=== PATIENT | female | born 1965 | race Caucasian/White ===

== ENCOUNTER → 2016-10-29 | Outpatient (CLI) | payer OTHER ==
--- NOTE | 2016-10-29 15:30 | CR ---
EXAMINATION: Left knee HISTORY: Pain COMPARISON: MRI dated 07/01/2016 TECHNIQUE: 2 views FINDINGS/IMPRESSION: There is no acute osseous abnormality, dislocation, or fracture. Bone mineraliz ation and joint spaces appear normal. No joint effusion or soft tissue swelling.
== END | disposition home or self-care (01) ==
LOC: MW.CHORTHO 07:50
PROVIDERS: ATTEND Orthopaedic Surgery
DX: M25.562 Pain in left knee (principal)
CPT/HCPCS: 73560-26-LT; 73560-LT

== ENCOUNTER 2016-12-09 07:52 | Day surgery (SDC) | payer OTHER ==
[~2016-12-09 07:52] MED LIST: Lactated Ringers 1,000 ML IV SCH; Lidocaine 1% 20 ML MDV ONE; Lidocaine 2% 5 ML SDV ONE; Midazolam 1 MG/ML 2 ML SDV ONE; Ondansetron 4 MG/2 ML SDV ONE; Propofol 200 MG/20 ML SDV ONE; Sodium Chloride 0.9% 20 ML ONE; ceFAZolin 1 GM Vial ONE; fentaNYL 250 MCG/5 ML SDV ONE
[2016-12-09] MEDS ORDERED: ceFAZolin 2 GM in Premix Bag 1 BAG IV SCH (08:00)
[2016-12-09] MEDS ORDERED: ePHEDrine 50 MG/ML SDV ONE ×2 (08:17→10:11)
[2016-12-09] MEDS ORDERED: Acetaminophen/HYDROcodone 325-5 MG Tab PO PRN (09:00)
--- NOTE | 2016-12-09 09:05 | PCM.OPNOTE ---
- General Post-Op/Procedure Note Date of Surgery/Procedure: 12/09/16 Operative Procedure(s): R knee arthroscopy Post-Op Diagnosis: R knee medial/lateral meniscus tear. DJD R knee Anesthesia Technique: General LMA Primary Surgeon: Maria M Lovelace Sheet Rock Installer: Jose Soares in mLs: 5 Condition: Good Free Text/Narrative:: tt=16 min #[id number]
--- NOTE | 2016-12-09 09:22 | PCM.PREANE ---
Preanesthetic Assessment - Procedure Proposed Procedure: Right knee arthroscopy with meniscal repair/excision - Anesthesia/Transfusion/Family Hx Anesthesia History: Prior Anesthesia Without Reaction Type of Anesthesia Reaction: Unknown Transfusion History: No Prior Transfusion(s) Intubation History: Unknown - Review of Systems General: No Symptoms, Other (obesity) Pulmonary: Shortness of Breath, Wheezing (hx with use of inhaler regularly) Cardiovascular: No Symptoms Gastrointestinal: Other (GERD; needs treatment daily) Neurological: Other (pain in both knees, right the worst) Other: Reports: None - Physical Assessment O2 Sat by Pulse Oximetry: 94 Respiratory Rate: 16 Vital Signs: Last Vital Signs Temp Pulse 70 12/09/16 08:10 Resp 16 12/09/16 08:10 BP 123/79 12/09/16 08:10 Pulse Ox 94 L 12/09/16 08:10 Height: 5 ft 2 in Weight: 246 lb ASA Class: 3 Mental Status: Alert & Oriented x3 Airway Class: Mallampati = 1 Dentition: Reports: Normal Dentition (irregular position on lower teeth) Thyro-Mental Finger Breadths: 3 Mouth Opening Finger Breadths: 3 ROM/Head Extension: Full (short neck) Lungs: Clear to auscultation, Decreased breath sounds (accessory muscle deep breathing) Cardiovascular: Regular Rate, Regular Rhythm, No Murmurs - Allergies Allergies/Adverse Reactions: Allergies Allergy/AdvReac Type Severity Reaction Status Date / Time morphine Allergy Swelling Verified 09/28/15 13:06 - Blood Blood Available: No Product(s) Available: None - Anesthesia Plan Pre-Op Medication Ordered: None - Acknowledgements Anesthesia Type Planned: General Anesthesia (OET vs LMA) Pt an Appropriate Candidate for the Planned Anesthesia: Yes Alternatives and Risks of Anesthesia Discussed w Pt/Guardian: Yes Pt/Guardian Understands and Agrees with Anesthesia Plan: Yes PreAnesthesia Questionnaire HEENT History: Reports: Other (See Below) Other HEENT History: wears glasses Cardiovascular History: Reports: High Cholesterol Respiratory History: Reports: Asthma Gastrointestinal History: Reports: GERD Genitourinary History: Reports: None 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 THERAPIST History: Reports: Musculoskeletal History: Reports: Arthritis, Fracture Other Musculoskeletal History: hx fx ankle Psychiatric History: Reports: Anxiety, Depression Endocrine/Metabolic History: Reports: Diabetes, Type II, Obesity/BMI 30+ - Past Surgical History Head Surgeries/Procedures: Reports: None Female Surgical History: Reports: Section, Hysterectomy Neurological Surgical History: Reports: Lumbar Spine Other Neurological Surgeries/Procedures: hx back surgery Musculoskeletal Surgical History: Reports: Other (See Below) Other Musculoskeletal Surgeries/Procedures:: Back Surgery - SUBSTANCE USE Smoking Status *Q: Current Every Day Smoker Tobacco Use Within Last Twelve Months: Cigarettes Days Per Week of Alcohol Use: 0 Recreational Drug Use History: No - HOME MEDS Home Medications: Home Meds Omeprazole Magnesium [Prilosec Otc] 20 mg PO DAILY 05/31/14 [History] Albuterol [Ventolin HFA] 2 puff INH ASDIRECTED PRN 12/04/16 [History] Diclofenac Sodium [Voltaren] 1 tab PO BID PRN 12/04/16 [History] Gabapentin [Neurontin] 2 tab PO TID 12/04/16 [History] Pravastatin Sodium 1 tab PO BEDTIME 12/04/16 [History] Saxagliptin HCl/Metformin HCl [Kombiglyze XR 2.5-1,000 MG] 2 tab PO PCDINNER 03/14 [History] Sertraline HCl 2 tab PO DAILY 12/04/16 [History] - CURRENT (IN HOUSE) MEDS Current Meds: Current Medications Hydrocodone Bitart/Acetaminophen (Beulah 325-5 Mg) 1 - 2 tab PO Q4H PRN PRN Reason: Pain Fentanyl (Sublimaze) 50 mcg IVPUSH Q5M PRN PRN Reason: Pain (severe 7-10) Stop: 12/10/16 08:38 Lactated Ringer's (Ringers, Lactated) 1,000 mls @ 100 mls/hr IV ASDIRECTED [facility] Last Admin: 12/09/16 08:14 Dose: 100 mls/hr Cefazolin Sodium/Dextrose 2 gm (/ Premix) 50 mls @ 100 mls/hr IV ONCALL [facility] Discontinued Medications Cefazolin Sodium (Ancef) Confirm Administered Dose 2 gm .ROUTE .STK-MED ONE Stop: 12/09/16 07:38 Ephedrine Sulfate (Ephedrine Sulfate) Confirm Administered Dose 50 mg .ROUTE .STK-MED ONE Stop: 12/09/16 08:18 Fentanyl (Sublimaze) Confirm Administered Dose 250 mcg .ROUTE .STK-MED ONE Stop: 12/09/16 07:38 Glycopyrrolate () Confirm Administered Dose 1 mg .ROUTE .STK-MED ONE Stop: 12/09/16 08:10 Sodium Chloride (Normal Saline) Confirm Administered Dose 20 mls @ as directed .ROUTE .STBiancaMed-MED ONE Stop: 12/09/16 07:38 Lidocaine (Xylocaine-Mpf 2%) Confirm Administered Dose 5 ml .ROUTE .STBiancaMed-MED ONE Stop: 12/09/16 07:38 Lidocaine HCl (Xylocaine 1%) Confirm Administered Dose 20 ml .ROUTE .STBiancaMed-MED ONE Stop: 12/08/16 14:59 Midazolam HCl (Versed 1 Mg/Ml) Confirm Administered Dose 2 mg .ROUTE .STBiancaMed-MED ONE Stop: 12/09/16 07:38 Ondansetron HCl (Zofran) Confirm Administered Dose 4 mg .ROUTE .GTRAN-MED ONE Stop: 12/09/16 07:38 Propofol (Diprivan 20 Ml) Confirm Administered Dose 200 mg .ROUTE .STBiancaMed-MED ONE Stop: 12/09/16 07:38
[2016-12-09] MEDS ORDERED: Famotidine 20 MG/2 ML SDV IVPUSH ONE (09:25)
[2016-12-09] MEDS ORDERED: Succinylcholine/Normal Saline 200 MG/10 ML Syringe ONE (09:42)
[2016-12-09] MEDS ORDERED: Albuterol 6.7 GM Inhaler INH ONE (10:10)
[2016-12-09] MEDS ORDERED: Propofol 200 MG/20 ML SDV ONE (10:38)
[2016-12-09] MEDS ORDERED: Albuterol/Ipratropium 3.0-0.5 MG/3 ML Neb Soln ONE (10:53)
[2016-12-09] MEDS ORDERED: Albuterol/Ipratropium 3.0-0.5 MG/3 ML Neb Soln NEB ONE (10:56)
--- NOTE | 2016-12-09 11:14 | PCM.POSTAN ---
POST ANESTHESIA ASSESSMENT - MENTAL STATUS Mental Status: alert, oriented - VITAL SIGNS Pulse Rate: 94 SaO2: 94 (improved from 87 on arrival; s/p albuterol Tx in PAR) Resp Rate: 15 Blood Pressure: 125/77 - RESPIRATORY Respiratory Status: respiratory rate WNL, airway patent, O2 saturation stable - CARDIOVASCULAR CV Status: pulse rate WNL, blood pressure stable - GASTROINTESTINAL GI Status: no symptoms - POST OP HYDRATION Hydration Status: adequate & stable
[2016-12-09] MEDS: fentaNYL 100 MCG/2 ML SDV IVPUSH PRN ×2 (11:16→11:33)
--- NOTE | 2016-12-09 12:47 | PCM48HPAN ---
Post Anesthesia Note - EVALUATION WITHIN 48HRS OF ANESTHETIC Vital Signs in Normal Range: Yes Patient Participated in Evaluation: Yes Respiratory Function Stable: Yes (albuterol treatment in PAR assisted in satisfactory discharge condition) Airway Patent: Yes Cardiovascular Function Stable: Yes Hydration Status Stable: Yes Pain Control Satisfactory: Yes Nausea and Vomiting Control Satisfactory: Yes Mental Status Recovered: Yes
[2016-12-09 14:06] VITALS: BP 122/74
--- NOTE | 2016-12-09 14:14 | OR ---
SURGEON: Maria M Lovelace MD DATE OF PROCEDURE: 12/09/2016 PREOPERATIVE DIAGNOSES: 1. Right knee medial meniscus tear. 2. Right knee degenerative disk disease. POSTOPERATIVE DIAGNOSES: 1. Right knee medial meniscus tear. 2. Right knee degenerative disk disease. 3. Right knee lateral meniscus tear. PROCEDURES: Right knee arthroscopy with partial medial and lateral meniscectomy. DIRECTOR HOME: Jose Soares PA-C. ANESTHESIA: General. ESTIMATED BLOOD LOSS: 5 mL. TOURNIQUET TIME: 16 minutes. COMPLICATIONS: None. DVT PROPHYLAXIS: Not indicated. IMPLANTS USED: None. BRIEF HISTORY: Callie is a 51-year-old female, who has had complaint of progressive right knee pain. She had failed conservative treatment. Due to her lack of response to conservative treatment, I did recommend surgical intervention. The risks and goals of procedure were discussed with the patient and were documented preoperatively. She agreed to proceed. DESCRIPTION OF PROCEDURE: The patient was properly identified and brought to the operating room. She was transferred from the OR cart and placed on the operating room table in supine position. General anesthesia was administered. After adequate anesthesia was obtained, a well-padded tourniquet was applied to the right lower extremity. The right lower extremity was then prepped in standard fashion using ChloraPrep solution. It was then sterilely draped. A time-out was performed to ensure correct site and procedure. Preoperative antibiotics were given. The surgical site had been marked preoperatively. An Esmarch was used to exsanguinate the right lower extremity and the tourniquet was inflated to 250 mmHg. A lateral portal arthrotomy was established. Blunt trocar and cannula were introduced into the suprapatellar pouch. Camera, inflow, and outflow were assembled. No significant synovitis was noted. The patellofemoral joint was visualized. She had extensive degenerative changes consistent with grade 3 to grade 4 chondromalacia along the central portion of the trochlear groove. The lateral portion of the patella also showed grade 4 chondromalacia. The patella appeared to track centrally. I then extended down to the lateral and medial gutters. No loose bodies were identified. I then entered the medial compartment. A medial portal arthrotomy was established. A blunt probe was inserted. She was found to have a degenerative tear of the posterior horn of the meniscus. Using a combination of biters and shaver, this was resected back to a stable remnant. The tibial plateau as well as the femoral condyle showed extensive degenerative changes diffusely consistent with grade 3 to grade 4 chondromalacia. I then entered the notch. Both the ACL and PCL were visualized and probed and found to be intact. I then entered the lateral compartment. Degenerative tearing of the meniscus was noted centrally. Using a combination of biters and shaver, this was resected back to a stable remnant. The lateral tibial plateau also showed significant degenerative changes consistent with grade 3 chondromalacia. The lateral femoral condyle showed grade 2 to grade 3 chondromalacia diffusely. The instruments were then removed from the knee. The portal sites were closed with 3-0 nylon. Lidocaine 1% was injected along the portal tracts. Xeroform gauze was placed over the wounds and a bulky dressing was applied. The tourniquet was then deflated. She was awakened from her anesthetic and transferred back to the operating room cart. She was brought to the recovery room in stable condition. All needle and sponge counts were correct thanks. BARRY / JOSE /[id number]
== END 2016-12-09 13:20 | disposition home or self-care (01) ==
LOC: MW.SDS 07:52
PROVIDERS: ATTEND Orthopaedic Surgery
PROC: 0SBC4ZZ Excision of Right Knee Joint, Percutaneous Endoscopic Approach (ICD-10-PCS; principal; 2016-12-09)
PROC: 0SBC4ZZ Excision of Right Knee Joint, Percutaneous Endoscopic Approach (ICD-10-PCS; 2016-12-09)
DX: M23.321 Other meniscus derangements, posterior horn of medial meniscus, right knee (principal); M23.361 Other meniscus derangements, other lateral meniscus, right knee; M22.41 Chondromalacia patellae, right knee; M17.11 Unilateral primary osteoarthritis, right knee; F41.9 Anxiety disorder, unspecified; M19.90 Unspecified osteoarthritis, unspecified site; J45.909 Unspecified asthma, uncomplicated; F32.9 Major depressive disorder, single episode, unspecified; E11.40 Type 2 diabetes mellitus with diabetic neuropathy, unspecified; E78.5 Hyperlipidemia, unspecified; K21.9 Gastro-esophageal reflux disease without esophagitis; M75.41 Impingement syndrome of right shoulder; M51.37 Other intervertebral disc degeneration, lumbosacral region; E66.9 Obesity, unspecified; E78.00 Pure hypercholesterolemia, unspecified; Z87.891 Personal history of nicotine dependence; Z86.73 Personal history of transient ischemic attack (TIA), and cerebral infarction without residual deficits; Z88.5 Allergy status to narcotic agent; Z79.84 Long term (current) use of oral hypoglycemic drugs; Z79.899 Other long term (current) drug therapy; Z90.710 Acquired absence of both cervix and uterus; Z98.890 Other specified postprocedural states
CPT/HCPCS: 29880; 94640; A9270; J0690; J2250; J2405; J3010; J7120; 01400; 88304; J2704

== ENCOUNTER 2017-12-31 16:07 | Emergency (ER) | payer OTHER ==
--- NOTE | 2017-12-31 16:16 | EDM.PDOC ---
ED HPI GENERAL MEDICAL PROBLEM - General Chief Complaint: Lower Extremity Injury/Pain Stated Complaint: DIZZY/LETHARGIC/SWOLLEN ANKLES Time Seen by Provider: 12/31/17 16:15 Source of Information: Reports: Patient - History of Present Illness INITIAL COMMENTS - FREE TEXT/NARRATIVE: HISTORY AND PHYSICAL: History of present illness: [Patient presents with several complaints she has had bariatric surgery 4 weeks ago concerned that her surgery is had a negative affect She currently has some intermittent dizziness associated with head position specifically looking down She also has a complaint of lethargy that is began over the last week week and a half where she feels quite sluggish ] She also has some ankle swelling which she is wearing compression stockings for does have edema which is 2+ Otherwise no fever, she has vomited with food couple of times and with drinking bolus of water today, no chills or sweats no chest pain shortness of breath headache or palpitation no bowel or urine symptoms Review of systems: As per history of present illness and below otherwise all systems reviewed and negative. Past medical history: As per history of present illness and as reviewed below otherwise noncontributory. Surgical history: As per history of present illness and as reviewed below otherwise noncontributory. Social history: No reported history of drug or alcohol abuse. Family history: As per history of present illness and as reviewed below otherwise noncontributory. Physical exam: HEENT: Atraumatic, normocephalic, pupils reactive, negative for conjunctival pallor or scleral icterus, mucous membranes moist, throat clear, neck supple, nontender, trachea midline. Dizziness reproduced with head position specifically chin to chest Lungs: Clear to auscultation, breath sounds equal bilaterally, chest nontender. Heart: S1S2, regular, negative for clicks, rubs, or JVD. Abdomen: Soft, nondistended, nontender. Negative for masses or hepatosplenomegaly. Negative for costovertebral tenderness. Surgical scars on abdomen well-healed clean dry intact no redness warmth or drainage no fluctuance Pelvis: Stable nontender. Genitourinary: Deferred. Rectal: Deferred. Extremities: Atraumatic, negative for cords or calf pain. Neurovascular unremarkable. Neuro: Awake, alert, oriented. Cranial nerves II through XII unremarkable. Cerebellum unremarkable. Motor and sensory unremarkable throughout. Exam nonfocal. Diagnostics: [TBC CMP UA troponin TSH urine culture EKG Chest [address] no contrast ] Therapeutics: [500 mL bolus Lasix 10 mg IV ] 1 g Rocephin IV Synthroid Macrobid Scopolamine transdermal Impression: benign positional vertigo Hypothyroidism UTI Postop bariatric procedure one month prior Chronic history of baseline finitive disposition and diagnosis as appropriate pending reevaluation and review of above. 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: Musculoskeletal History: Reports: Arthritis, Fracture Other Musculoskeletal History: hx fx ankle Psychiatric History: Reports: Anxiety, Depression Endocrine/Metabolic History: Reports: Diabetes, Type II, Obesity/BMI 30+ - Past Surgical History Head Surgeries/Procedures: Reports: None Female Surgical History: Reports: Section, Hysterectomy Neurological Surgical History: Reports: Lumbar Spine Other Neurological Surgeries/Procedures: hx back surgery Musculoskeletal Surgical History: Reports: Other (See Below) Other Musculoskeletal Surgeries/Procedures:: Back Surgery Social & Family History - Family History Family Medical History: Noncontributory Review of Systems - Review of Systems Review Of Systems: See Below ED EXAM, GENERAL - Physical Exam Exam: See Below Course - Vital Signs Last Recorded V/S: Last Vital Signs Temp 97.9 F 12/31/17 16:17 Pulse 65 12/31/17 16:17 Resp 18 12/31/17 16:17 BP 138/105 H 12/31/17 16:17 Pulse Ox 95 12/31/17 16:17 - Orders/Labs/Meds Orders: Active Orders 24 hr Category Date Time Status EKG Documentation Completion [RC] STAT Care 12/31/17 16:14 Active Chest 1V Frontal [CR] Stat Exams 12/31/17 16:14 Taken Head wo Cont [CT] Stat Exams 12/31/17 16:14 Taken CULTURE URINE [RM] Stat Lab 12/31/17 17:59 Ordered UA W/MICROSCOPIC [URIN] Stat Lab 12/31/17 17:06 Ordered UA W/MICROSCOPIC [URIN] Stat Lab 12/31/17 17:06 Received Sodium Chloride 0.9% [Normal Saline] 500 ml Med 12/31/17 17:15 Active IV STAT cefTRIAXone [Rocephin in Dextrose,Iso-Osm 1 GM/50 ML] 1 Med 12/31/17 18:00 Active gm Premix Bag 1 bag IV ONETIME Medication Orders Sodium Chloride (Normal Saline) 500 mls @ 999 mls/hr IV STAT CANDICE Last Admin: 12/31/17 17:25 Dose: 999 mls/hr Ceftriaxone Sodium/Dextrose 1 (gm/ Premix) 50 mls @ 100 mls/hr IV ONETIME ONE Stop: 12/31/17 18:29 Labs: Laboratory Tests 12/31/17 12/31/17 12/31/17 Range/Units 16:25 16:25 17:06 WBC 5.90 (4.0-11.0) K/uL RBC 3.65 L (4.30-5.90) M/uL Hgb 11.2 L (12.0-16.0) g/dL Hct 34.2 L (36.0-46.0) % MCV 93.7 (80.0-98.0) fL MCH 30.7 (27.0-32.0) pg MCHC 32.7 (31.0-37.0) g/dL RDW Std Deviation 49.5 (28.0-62.0) fl RDW Coeff of Negrito 14 (11.0-15.0) % Plt Count 185 (150-400) K/uL MPV 12.40 H (7.40-12.00) fL Neut % (Auto) 56.3 (48.0-80.0) % Lymph % (Auto) 34.4 (16.0-40.0) % [place] % (Auto) 7.6 (0.0-15.0) % Eos % (Auto) 1.2 (0.0-7.0) % Baso % (Auto) 0.5 (0.0-1.5) % Neut # (Auto) 3.3 (1.4-5.7) K/uL Lymph # (Auto) 2.0 (0.6-2.4) K/uL [place] # (Auto) 0.5 (0.0-0.8) K/uL Eos # (Auto) 0.1 (0.0-0.7) K/uL Baso # (Auto) 0.0 (0.0-0.1) K/uL Nucleated RBC % 0.0 /100WBC Nucleated RBCs # 0 K/uL Sodium 143 (136-145) mmol/L Potassium 3.3 L (3.5-5.1) mmol/L Chloride 105 (98-107) mmol/L Carbon Dioxide 27.2 (21.0-32.0) mmol/L BUN 11 (7.0-18.0) mg/dL Creatinine 0.9 (0.6-1.0) mg/dL Est Cr Clr Drug Dosing TNP Estimated GFR (MDRD) > 60.0 ml/min Glucose 122 H (74-106) mg/dL Calcium 8.4 L (8.5-10.1) mg/dL Total Bilirubin 0.4 (0.2-1.0) mg/dL AST 22 (15-37) IU/L ALT 29 (14-63) IU/L Alkaline Phosphatase 77 (46-116) U/L Troponin I < 0.050 (0.000-0.056) ng/mL Total Protein 6.4 (6.4-8.2) g/dL Albumin 3.4 (3.4-5.0) g/dL Globulin 3.0 (2.0-3.5) g/dL Albumin/Globulin Ratio 1.1 L (1.3-2.8) TSH 3rd Generation 3.81 H (0.36-3.74) uIU/mL Urine Color YELLOW Urine Appearance SLT CLOUDY Urine pH 6.0 (5.0-8.0) Ur Specific [place] 1.025 (1.001-1.035) Urine Protein NEGATIVE (NEGATIVE) mg/dL Urine Glucose (UA) NEGATIVE (NEGATIVE) mg/dL Urine Ketones NEGATIVE (NEGATIVE) mg/dL Urine Occult Blood NEGATIVE (NEGATIVE) Urine Nitrite POSITIVE H (NEGATIVE) Urine Bilirubin NEGATIVE (NEGATIVE) Urine Urobilinogen 0.2 (<2.0) EU/dL Ur Leukocyte Esterase TRACE (NEGATIVE) Urine RBC 0-2 (0-2/HPF) Urine WBC 1-5 (0-5/HPF) Ur Epithelial Cells FEW (NONE-FEW) Urine Bacteria 3+ H (NEGATIVE) Urine Mucus FEW (NONE-MOD) Meds: Medications Generic Name Dose Route Start Last Admin Trade Name Freq PRN Reason Stop Dose Admin Sodium Chloride 500 mls @ 999 mls/hr 12/31/17 17:15 12/31/17 17:25 Normal Saline IV 999 mls/hr STAT CANDICE Administration Ceftriaxone Sodium/Dextrose 1 50 mls @ 100 mls/hr 12/31/17 18:00 gm/ Premix IV 12/31/17 18:29 ONETIME ONE Discontinued Medications Generic Name Dose Route Start Last Admin Trade Name Freq PRN Reason Stop Dose Admin Furosemide 10 mg 12/31/17 17:13 12/31/17 17:27 Lasix IVPUSH 12/31/17 17:14 10 mg NOW ONE Administration Departure - Departure Time of Disposition: 18:14 Disposition: Home, Self-Care 01 Condition: Good Clinical Impression: Benign positional vertigo, UTI (urinary tract infection), Hypothyroidism - Discharge Information Referrals: Viridiana Egan PEDIGREE RESEARCHER [Primary Care Provider] - Forms: ED Department Discharge Additional Instructions: Medication as prescribed Return if symptoms persist or worsen Follow-up with primary care in 2 weeks sooner as needed The following information is given to patients seen in the emergency department who are being discharged to home. This information is to outline your options for follow-up care. We provide all patients seen in our emergency department with a follow-up referral. The need for follow-up, as well as the timing and circumstances, are variable depending upon the specifics of your emergency department visit. If you don't have a primary care physician on staff, we will provide you with a referral. We always advise you to contact your personal physician following an emergency department visit to inform them of the circumstance of the visit and for follow-up with them and/or the need for any referrals to a consulting specialist. The emergency department will also refer you to a specialist when appropriate. This referral assures that you have the opportunity for follow-up care with a specialist. All of these measure are taken in an effort to provide you with optimal care, which includes your follow-up. Under all circumstances we always encourage you to contact your private physician who remains a resource for coordinating your care. When calling for follow-up care, please make the office aware that this follow-up is from your recent emergency room visit. If for any reason you are refused follow-up, please contact the [facility] emergency department at and asked to speak to the emergency department charge nurse. - My Orders Last 24 Hours: My Active Orders 12/31/17 16:14 EKG Documentation Completion [RC] STAT Chest 1V Frontal [CR] Stat Head wo Cont [CT] Stat 12/31/17 17:06 UA W/MICROSCOPIC [URIN] Stat UA W/MICROSCOPIC [URIN] Stat 12/31/17 17:15 Sodium Chloride 0.9% [Normal Saline] 500 ml IV STAT 12/31/17 17:59 CULTURE URINE [RM] Stat 12/31/17 18:00 cefTRIAXone [Rocephin in Dextrose,Iso-Osm 1 GM/50 ML] 1 gm Premix Bag 1 bag IV ONETIME - Assessment/Plan Last 24 Hours: My Active Orders 12/31/17 16:14 EKG Documentation Completion [RC] STAT Chest 1V Frontal [CR] Stat Head wo Cont [CT] Stat 12/31/17 17:06 UA W/MICROSCOPIC [URIN] Stat UA W/MICROSCOPIC [URIN] Stat 12/31/17 17:15 Sodium Chloride 0.9% [Normal Saline] 500 ml IV STAT 12/31/17 17:59 CULTURE URINE [RM] Stat 12/31/17 18:00 cefTRIAXone [Rocephin in Dextrose,Iso-Osm 1 GM/50 ML] 1 gm Premix Bag 1 bag IV ONETIME
[2017-12-31 17:01] LABS: CHLORIDE,CL 105 mmol/L (98-107); SODIUM,NA 143 mmol/L (136-145)
[2017-12-31] MEDS ORDERED: Furosemide 40 MG/4 ML VIAL IVPUSH ONE (17:13)
[2017-12-31] MEDS ORDERED: Sodium Chloride 0.9% 500 ML IV SCH (17:15)
[2017-12-31] MEDS ORDERED: cefTRIAXone 1 GM in Premix Bag 1 BAG IV ONE (18:00)
--- NOTE | 2017-12-31 19:28 | CR ---
EXAM DATE: 12/31/17 PATIENT'S AGE: 52 Patient: ANTWAN RUELAS Facility: [place], [place] Site . Site : 1965 Study: XRay Chest [id number]/6/2018 4:57:08 PM Ordering Physician: Philippe Lassiter Final Report: INDICATION: Dizzy TECHNIQUE: Chest 1 view COMPARISON: September 28, 2015 FINDINGS: Cardiovascular and mediastinum: Heart size and vasculature are normal in caliber and appearance. Mediastinum is within normal limits. Lungs and pleural space: No focal consolidation. No sign of pleural effusion. No pneumothorax. Bones and soft tissues: No significant findings. IMPRESSION: No acute cardiopulmonary disease. Dictated by Kevin Schilling MD @ 12/31/2017 5:26:52 PM Dictated by: Kevin Schilling MD @ 12/31/2017 17:27:08 (Electronic Signature) Report Signed by Proxy. [facility]PITAL[facility]ma
--- NOTE | 2017-12-31 19:29 | CT ---
EXAM DATE: 12/31/17 PATIENT'S AGE: 52 Patient: ANTWAN RUELAS Facility: [place], [place] Site . Site : 1965 Study: CT Head [id number] 4:57:24 PM Ordering Physician: Philippe Lassiter Final Report: Indication: Dizziness. History of trauma and falls. Nausea, vomiting, dizziness Technique: Multiaxial CT images of the head were obtained without contrast. Coronal and sagittal reformats were submitted. Comparison: No prior studies are available for comparison at this institution. Findings: The ventricles, sulci and gyri are of normal size, shape and contour. Midline structures are centrally located. No convincing evidence of intra- or extra- axial fluid collections. The calvarium and skull base are unremarkable, with normal aeration of the visualized petrous temporal bones and paranasal sinuses on both sides. Impression: No radiographic evidence of acute intracranial abnormality. Please note that all CT scans at this facility use dose modulation, iterative reconstruction, and/or weight-based dosing when appropriate to reduce radiation dose to as low as reasonably achievable. Dictated by Ivan Mejia MD @ Dec 31 2017 5:16PM (Electronic Signature) Report Signed by Proxy. [facility]
[2017-12-31 19:32] VITALS: BP 135/72
== END 2017-12-31 19:26 | disposition home or self-care (01) ==
LOC: MW.ED 16:07
DX: N39.0 Urinary tract infection, site not specified (principal); E03.9 Hypothyroidism, unspecified; R42 Dizziness and giddiness; Z98.890 Other specified postprocedural states; Z88.5 Allergy status to narcotic agent
CPT/HCPCS: 36415; 70450; 71045; 80053; 81001; 84443; 84484; 85025; 87086; 87088; 87186; 93005; 96361; 96365; 96375; 99284; J0696; J1940; J7040; 99283

== ENCOUNTER 2023-06-13 14:01 | Emergency (ER) | payer OTHER ==
[2023-06-13] MEDS ORDERED: Sodium Chloride 0.9% 1,000 ML IV ONE (14:30)
[2023-06-13] MEDS ORDERED: Sodium Chloride 0.9% 2.5 ML Syringe FLUSH PRN (14:30)
[2023-06-13] MEDS ORDERED: Sodium Chloride 0.9% 10 ML Syringe FLUSH PRN (14:30)
[2023-06-13] MEDS ORDERED: Ondansetron 4 MG/2 ML SDV IVPUSH ONE (14:31)
[2023-06-13 15:19] LABS: BASOPHILS ABSOLUTE AUTO 0.03 K/uL (0.00-0.20); BASOPHILS PERCENT AUTO 0.4 % (0.0-1.0); EOSINOPHILS ABSOLUTE AUTO 0.03 K/uL (0.00-0.45); EOSINOPHILS PERCENT AUTO 0.4 % (0.0-6.0); HEMATOCRIT 38.3 % (37.0-47.0); HEMOGLOBIN 12.8 g/dL (12.0-16.0); IMMATURE GRAN ABSOLUTE AUTO 0.02 K/uL (0.00-0.05); IMMATURE GRAN PERCENT AUTO 0.3 % (0.0-0.4); LYMPHOCYTES ABSOLUTE AUTO 2.86 K/uL (1.00-4.80); LYMPHOCYTES PERCENT AUTO 39.3 % (24.0-44.0); MEAN CORPUSCULAR HEMOGLOBIN 29.7 pg (28.0-32.0); MEAN CORPUSCULAR HGB CONC 33.4 g/dL (32.0-36.0); MEAN CORPUSCULAR VOLUME 88.9 fL (83.0-99.0); MEAN PLATELET VOLUME 12.2 fL (9.4-12.3); MONOCYTES ABSOLUTE AUTO 0.32 K/uL (0.00-0.80); MONOCYTES PERCENT AUTO 4.4 % (0.0-8.0); NEUTROPHILS ABSOLUTE AUTO 4.02 K/uL (1.80-7.70); NEUTROPHILS PERCENT AUTO 55.2 % (41.0-71.0); PLATELET COUNT,PLT 173 K/uL (150-400); RED BLOOD CELL COUNT 4.31 M/uL (4.10-5.30); WHITE BLOOD CELL COUNT,WBC 7.28 K/uL (3.9-11.3)
[2023-06-13 15:21] LABS: BICARBONATE,VENOUS 27 mEq/L (23-28); PCO2 VENOUS 39 mmHG (41-51); PH,VENOUS 7.45 (7.31-7.41)
[2023-06-13 15:22] LABS: PO2 VENOUS < 30 mmHG
[2023-06-13 15:37] LABS: INR 1.07 (0.86-1.11); PTT,PARTIAL THROMBOPLSTIN TIME 26.1 SEC (23.9-30.7)
[2023-06-13 15:55] LABS: A/G RATIO 1.1 (0.9-1.6); ALBUMIN 3.3 g/dL (3.4-5.0); BILIRUBIN TOTAL 0.9 mg/dL (0.2-1.0); CALCIUM 8.8 mg/dL (8.5-10.1); CARBON DIOXIDE,CO2 27.8 mmol/L (21.0-32.0); CREATININE 1.2 mg/dL (0.6-1.0); EST CRCL DRUG DOSING (CG) 45.2 mL/min; MAGNESIUM 1.8 mg/dL (1.8-2.4); POTASSIUM,K 3.5 mmol/L (3.5-5.1); PROTEIN TOTAL,TP 6.4 g/dL (6.4-8.2)
[2023-06-13] MEDS ORDERED: Iopamidol 755 MG/ML 500 ML Multipack Bottle IVPUSH STA (16:24)
[2023-06-13 18:29] LABS: AMPHETAMINES SCREEN, URINE NEGATIVE (CUTOFF=500); BARBITURATE SCREEN,URINE NEGATIVE (CUTOFF=200); BENZODIAZEPINES SCREEN,URINE PRESUMPTIVE POSITIVE (CUTOFF=150); BUPRENORPHINE SCREEN,URINE NEGATIVE (CUTOFF=10); METHADONE SCREEN, URINE NEGATIVE (CUTOFF=200); METHAMPHETAMINES SCREEN, URINE NEGATIVE (CUTOFF=500); OXYCODONE SCREEN,URINE NEGATIVE (CUT0FF=100); PCP SCREEN,URINE NEGATIVE (CUTOFF=25); THC SCREEN,URINE 20 NG/ML PRESUMPTIVE POSITIVE (CUTOFF=50)
[2023-06-13 18:46] LABS: ACETAMINOPHEN <2.0 ug/mL; SALICYLATE 2.2 mg/dL (0.0-20.0); TSH ULTRASENSITIVE 1.15 uIU/mL (0.36-3.74)
[2023-06-13 19:17] VITALS: BP 112/63; PULSE 65
== END 2023-06-13 19:17 | disposition home or self-care (01) ==
LOC: MW.ED 14:01
DX: R56.9 Unspecified convulsions (principal); I48.91 Unspecified atrial fibrillation; I48.92 Unspecified atrial flutter; R45.851 Suicidal ideations; Z86.73 Personal history of transient ischemic attack (TIA), and cerebral infarction without residual deficits; Z91.148 Patient's other noncompliance with medication regimen for other reason; E78.00 Pure hypercholesterolemia, unspecified; E11.9 Type 2 diabetes mellitus without complications; E66.9 Obesity, unspecified; Z90.710 Acquired absence of both cervix and uterus; Z79.899 Other long term (current) drug therapy; Z88.5 Allergy status to narcotic agent; Z68.28 Body mass index [BMI] 28.0-28.9, adult
CPT/HCPCS: 36415; 70450; 70496; 70498; 80053; 80143; 80179; 80305; 80307; 82550; 82803; 83735; 84443; 84484; 85025; 85610; 85730; 86850; 86900; 86901; 93005; 96361; 96365; 96375; 99285; J1953; J2405; J3490; J7030; J7060; Q9967; 93010